=== PATIENT | male | born 1955 | race Caucasian/White ===

== ENCOUNTER 2016-07-06 10:52 | Emergency (ER) | payer MEDICARE, OTHER ==
[~2016-07-06] VITALS: Ht 177.8 cm; Wt 104.3 kg
[2016-07-06 10:52] VITALS: BP 118/92
[2016-07-06] MEDS ORDERED: IBUPROFEN 600 MG TABLET PO ONE ×2 (11:30)
== END 2016-07-06 12:14 | disposition home or self-care (01) ==
LOC: ER 10:54 → EDSEX 10:54 → ER 12:14
DX: S62.613A Displaced fracture of proximal phalanx of left middle finger, initial encounter for closed fracture (principal); S63.283A Dislocation of proximal interphalangeal joint of left middle finger, initial encounter; I10 Essential (primary) hypertension; W18.39XA Other fall on same level, initial encounter; Y93.89 Activity, other specified; Y92.89 Other specified places as the place of occurrence of the external cause; Y99.8 Other external cause status
CPT/HCPCS: 73130 ×2; 99284; A4606; Z7610